=== PATIENT | female | born 1995 | race African-American/Black ===

== ENCOUNTER 2024-12-01 16:43 | Observation (INO) | payer BC, SELFPAY ==
[2024-12-01] VITALS (11 sets, daily range): BP systolic 101–117; BP diastolic 59–84; PULSE 85–105; RESP 14–21; TEMP 36.4–36.6; O2SAT 98–100; BMI 33.4
--- NOTE | ~2024-12-01 | CT_ITS ---
EXAMINATION: CT abdomen pelvis w con DATE: 12/01/2024 20:07 INDICATION: epigastric pain TECHNIQUE: Computed tomography (CT) of the abdomen and pelvis was performed with 100 mL Omnipaque-350 intravenous contrast. Automated exposure control and iterative reconstruction technique were employe d. The dose-length product was 439.38 mGy-cm. COMPARISON: None. FINDINGS: Lower thorax: Unremarkable Liver: Mildly enlarged. Biliary/Gallbladder: Gallbladder is normal. No bile duct dilation. Pancreas: No mass or duct dilation. Spleen: Normal. Adrenals:No mass. Kidneys: No suspicious mass, obstructing stone, or hydronephrosis. There is early concentration of co ntrast in the renal calyces which could obscure small calculi or medullary calcinosis. GI tract: Mild distal esophageal and gastric wall edema. No small or large bowel dilation. The append ix is dilated to 9 mm, with wall hyperemia. Mild surrounding inflammatory fluid that also involves th e right adnexal structures. No definite wall breakdown. Mesentery/Peritoneum: No ascites, mass, or free air. Retroperitoneum: No mass. Pelvis: Pelvic organs are within normal limits. Previously oh cyst on the right. Small-volume pelvic fluid, within physiologic range. Soft Tissues: Small uncomplicated fat-containing umbilical hernia Bones: No acute osseous finding. IMPRESSION: Mild esophagitis/gastritis. Mild hepatomegaly. Acute uncomplicated appendicitis. Reviewed, dictated and finalized at location K.
[2024-12-01 17:57] LABS: Hematocrit 38.6 % (37.0-47.0); Hemoglobin 12.2 g/dL (12.0-15.0); Immature Granulocyte Percent A 0.4 % (0-0.5); Lymphocytes Absolute Auto 0.98 K/mm3 (0.9-3.2); Mean Corpuscular HGB Conc 31.6 g/dl (32-36); Mean Corpuscular Hemoglobin 27.8 pg (26-34); Mean Corpuscular Volume 87.9 fl (80-100); Nucleated Red Blood Cells Absolute Auto 0.000 K/mm3 (0.0-0.012); Nucleated Red Blood Cells Perc 0.0 % (0.0-0.2); Platelet Count Result 279 k/mm3 (150-375); Red Blood Count 4.39 M/mm3 (4.2-5.4); White Blood Count 7.9 K/mm3 (4.5-10.0)
[2024-12-01 17:59] LABS: BEDSIDEPREGUCG Negative (Negative)
[2024-12-01 18:18] LABS: Alanine Aminotransferase 19 U/L (6-35); Albumin Level 4.5 g/dL (3.5-5.1); Alkaline Phosphatase 73 U/L (38-126); Anion Gap 9 mmol/L (4-12); Aspartate Amino Transferase 25 U/L (14-36); Bilirubin,Total 0.3 mg/dL (0.2-1.3); Blood Urea Nitrogen 9 mg/dL (7-17); Calcium 9.2 mg/dL (8.4-10.2); Carbon Dioxide 25 mmol/L (22-30); Chloride 105 mmol/L (98-107); Estimated CRCL calculation 80 ml/min; Estimated Glomerular Filt Rate > 60; Glucose 94 mg/dL (65-110); Lipase 55 U/L (23-300); Potassium 3.9 mmol/L (3.4-5.0); Sodium 139 mmol/L (137-145); Total Protein 8.3 g/dL (6.3-8.2)
[2024-12-01 18:21] LABS: Add Urine Microscopic? YES; Appearance Urine Clear (Clear); Glucose Urine UA Negative (Negative); Leukocyte Esterase Ur Negative LEU/UL (Negative); Nitrate Urine Negative (Negative); Non Pathogenic Casts 0-2; Specific Grav Ur 1.037 (1.001-1.035)
--- OUTSIDE RECORDS SUMMARY | 2024-12-01 18:30 | XMS_ITS | Data Portability ---
[facility] Address [address] [place] [address] Assessment No assessment recorded. Plan of Treatment Reminders Order Date Submit Date Provider Last Modified By Organization Details Last Modified Time Details Appointments None record ed. Lab None record ed. Referral None record ed. Procedures None record ed. Surgeries None record ed. Imaging None record ed. Medication Orders None record ed. Patient TargetsNo targets recorded. Patient Instructions Encounter Date Encounter Id Patient Instructions Last Modified By Organization Details Last Modified Time 02/09/2023 [id number] A healthy lifestyle: care instructions [email or web address] Not available 02/10/2023 11:59:04 Reason for Referral None Reported. Problems No Known Problems Medical Equipment None Reported. Allergies No known drug allergies Medications Not known to be on any medication Vitals Date Recorded Body height Body mass index (BMI) Body weight Oxygen saturation Oxygen saturation in Arterial blood by Pulse oximetry Heart rate Respiratory rate Body temperature Systolic And Diastolic Provider Name and Address Organization Details Last Updated DateTime 3 154.94 cm 32.4 kg/m2 46218.7 5 g 100 % 100 % 86 /min 18 /min 98 [degF] 109/74 mm[Hg] Arianna Hess MA [facility] 3 17:37:48 Social History Question Answer Notes LastModified by Organizat ion Details LastModified Time Tobacco Smoking Status Never Smoker EVA Arredondo, [facility] 02/09/2023 17:39:18 Do You Have An Advance Directive? Yes Information n ot available 02/09/2023 Are You Blind Or Do You Have Difficulty Seeing? No Information n ot available 02/09/2023 What Is Your Level Of Caffeine Consumption? Occasional Information not available 02/09/2023 In The 14 Days Before Symptom Onset, Have You Had Close Contact With A Laboratory-confirm ed COVID-19 While That Case Was Ill? No Information n ot available 02/09/2023 In The 14 Days Before Symptom Onset, Have You Had Close Contact With A Person Who Is Under Investigation For COVID-19 While That Person Was Ill? No Information not available 02/09/2023 Have You Been To An Area Known To Be High Risk For COVID-19? No Information not available 02/09/2023 Are You Deaf Or Do You Have Serious Difficulty Hearing? No Information not available 02/09/2023 What Type Of Diet Are You Following? REGULAR Information n ot available 02/09/2023 Are There Any Guns Present In Your Home? No Information not available 02/09/2023 What Was The Date Of Your Most Recent Tobacco Screening? 02/09/2023 Information not available 02/09/2023 Do You Use Protection During Sex? Always Information not available 02/09/2023 What Is Your Relationship Status? Single Information not available 02/09/2023 Do You Use Your Seat Belt Or Car Seat Routinely? Yes Information not available 02/09/2023 Are You Sexually Active? Yes Information not available 02/09/2023 Do You Have Smoke And Carbon Monoxide Detectors In Your Home? Yes Information not available 02/09/2023 Are You Passively Exposed To Smoke? No Information no t available 02/09/2023 Do You Use Sunscreen Routinely? No Information not available 02/09/2023 Has Tobacco Cessation Counseling Been Provided? No Information not available 02/09/2023 Sex: Female Functional Status Question Answer Note LastModified by Organizat ion Details LastModified Time Do you use any illicit or recreational drugs? No Information not available 02/09/2023 Do you or have you ever used any other forms of tobacco or nicotine? No Information not available 02/09/2023 What is your level of alcohol consumption? None Information not available 02/09/2023 Are you currently employed? No Information not available 02/09/2023 Are you able to care for yourself? Yes Information not available 02/09/2023 What is your exercise level? None Information not available 02/09/2023 Mental Status Question Answer Note LastModified by Organization D etails LastModified Time Do you feel stressed (tense, restless, nervous, or anxious, or unable to sleep at night)? [id number] Information not available 02/09/2023 Family History Nothing Reported. Medical History Condition Response Coronary Artery Disease N Other N High Blood Pressure N Atrial Fibrillation N Kidney or Bladder Problems N Thyroid Problems N Blood Clots N COPD N Depression N GI Problems N Skin Problems N Eating Disorder N Anemia N Heart Attack ([place]) N Anxiety Disorder N Diabetes N Muscle, Joint, or Bone Problems N Seizures/Epilepsy N Acid Reflux (GERD) N Cancer N Stroke N Asthma N Allergies N ADHD N Substance Abuse N High Cholesterol N Hepatitis N Liver Disease N Schizophrenia N Headaches N Heart Failure N Osteoporosis N Gynecological History Statement/Question Response Flow Moderate Date of LMP 01/28/2023 Frequency of Cycle (Q days) 28 On BCP's at Conception? N Menses Monthly Y Duration of Flow (days) 4 Age at Menarche 12 Current Control Method Condoms LMP Definite Obstetrics History GPAL:G 0 P 0 0 0 0 Past Encounters Encounter ID Performer Location Encounter Start Date Encounter Closed Date Diagnosis/Indication Diagnosis SNOMED-CT Code Diagnosis ICD10 Code Diagnosis Note [id number] Carmen Crouch MD [address] [address] 02/09/2023 16:51:41 02/12/2023 14:26:37 Obesity 871712903 E66.9 History an d physical examination, pre-employment 127002296 Z02.1 negative assessment . no restrictio ns indicated. denies asthma, heart disease and sickle cell. Health Concerns Section Related Observation LastModified by Organization Detai ls LastModified Time None Recorded Concern Status LastModified by Organization Details LastModified Time None Recorded Advance Directives Directive Y: Payers Insurance Date Sequence Insurance Name Policy Number Policy Servin Covered Member ID Servin Member ID Guarantor Name 02/12/2023 1 [employer] (POS II) [id number] Jody Garces [id number] Jodyalycia Garces 02/09/2023 1 *SELF PAY* Br debra Dez Notes Date Note Type Note Provider Name and Address Organization Details Recorded Time 02/09/2023 text/html Pt presents to clinic requesting an employment physical. She denies nausea, vomiting, fever, chills, rash, cough, CP, SOB, HARMON, diarrhea, constipation and dysuria. MAGDIEL Blackman NP Attn: Accounting[address] [place], [address], [facility] 02/09/2023 17:43:59 OBGyn Episode No OBEpisode recorded.
--- OUTSIDE RECORDS SUMMARY | 2024-12-01 18:30 | XMS_ITS | Encounter Summary ---
Author Organization [facility] Address [address] [place] [address] Care Team Providers Care Personal Lines Sales Executive Name Role Phone Unknown, Provider Primary Care Provider [facility] Primary Care Provider Unavailable Encounter Details Date Type Department Care Team (Late st Contact Info) Description 02/06/2024 Telephone [facility] - PREPAROLE COUNSELING AIDE [address] [place] [address] Group, u Sponsorship Manager [address] [facility] [address] [place] [address] Social History Tobacco Use Types Packs/Day Years Used Date Smoking Tobacco: Never Smokeless Tobacco: Never Alcohol Use Standard Drinks/Week Comments No 0 (1 standard drink = 0.6 oz pur e alcohol) PHQ-2 Answer Date Recorded Patient Health Questionnaire-2 Score 0 09/11/2023 Comments No Sex and Gender Information Value Date Recorded Sex Assigned at Not on file 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 Answer Date of Assessment Author No 12/13/2016 8:32 PM Alanis Boyle RN * Is person blind or have serious difficulty seeing? Answer Date of Assessment Author No 12/13/2016 8:32 PM Alanis Boyle RN * Does person have serious difficulty walking/climbing stairs? Answer Date of Assessment Author No 12/13/2016 8:32 PM CDT Alanis Dey RN * Does person have difficulty dressing/bathing? Answer Date of Assessment Author No 12/13/2016 8:32 PM CDT Alanis Dey RN * Does person have difficulty doing errands alone? Answer Date of Assessment Author No 12/13/2016 8:32 PM CDT Alanis Dey, RN documented as of this encounter Mental Status * Does person have difficulty concentrating/remembering/making decisions? Answer Entry Date Author No 12/13/2016 8:32 PM CDT Alanis Dey RN documented in this encounter Miscellaneous Notes * Telephone Encounter - Jeimy Dennis - 02/06/2024 8:55 AM CDT Outbound call made to patient Left message for pt to call and reate an appt with urogyn .. The was disconnected did leave # for her to call and create an appt documented in this encounter Plan of Treatment Upcoming Encounters Date Type Department Care Team (Late st Contact Info) Description 09/30/2025 9:10 AM CDT Office Visit [facility] - PREPAROLE COUNSELING AIDE [address] [place] [id number] James Franco MD [address] [place] [address] documented as of this encounter Visit Diagnoses Not on filedocumented in this encounter Care Teams Personal Lines Sales Executive Relationship Specialty Start Date End Date Unknown, Provider PCP - General 09/04/17 08/18/24 [facility], [facility] PCP - General 08/19/24 documented as of this encounter
--- OUTSIDE RECORDS SUMMARY | 2024-12-01 18:30 | XMS_ITS | Data Portability ---
Author Organization [facility], Main Office Address [address] [place] [address] [address] [place] [address] Assessment No assessment recorded. Plan of Treatment [...] Modified By Organization Details Last Modified Time 04/27/2021 [id number] She will follow up with me only as needed and if she wants to start treatment. On today's visit I spent a total of 30 minutes [id number] with her and documenting. [email or web address] Not available 05/31/2021 20:43:09 Reason for Referral None Reported. Problems Name Problem SNOMED Code Status Onset Date Resolution Date Notes Provider Name and Address Organization Details Recorded Time Pile easily reducible 293377739 Active 2020: No tx -no want Aruna Hernandez MD [address] [place] [address],[address], [address] [place] [address] [facility] 2 20:42:11 External hemorrhoids 75351190 Active 2020 Aruna Hernandez MD [address] [place] [address],[address], [address] [place] [address] [facility] 2 20:42:20 Constipation 49906168 Active 2020 Aruna Hernandez MD [address] [place] [address],[address] [place], [address], [facility] [place] 2 20:41:47 Problem Notes None recorded. Procedures Surgical History Date Name Laterality Status Provider Name and Address Organization Details Recorded Time 1 Anoscopy completed Aruna Hernandez MD [address], [place], [address], [facility] [place] 05/31/2021 20:37:36 Date of Last Pap Smear completed Francoise Arreola [facility] 04/27/2021 11:08:32 Imaging Results None recorded. Procedure Notes None recorded. Medical Equipment None Reported. Allergies No known drug allergies Medications Not known to be on any medication Vitals None Recorded Social History Question Answer Notes LastModified by Organizat ion Details LastModified Time Tobacco Smoking Status Never Smoker Francoise Arreola [facility] 04/27/2021 11:08:04 Alcohol Use No [email or web address] Information n ot available 04/27/2021 Caffeine Use No [email or web address] Information not available 04/27/2021 Illicit Drug Use No [email or web address] Information not available 04/27/2021 What Was The Date Of Your Most Recent Tobacco Screening? 04/27/2021 [email or web address] Information not available 04/27/2021 Sex: Unknown Functional Status Question Answer Note LastModified by Organization D etails LastModified Time Do you or have you ever used any other forms of tobacco or nicotine? No [email or web address] Information not available 04/27/2021 Mental Status None recorded. Family History Relationship Description Onset Age of this Age Resolved Age Notes LastModified by Organization Details LastModified Time Father No current problems or disability Not available 04/27 11:07:52 Mother No current problems or disability [email or web address] Not available 04/27 11:07:52 Medical History Condition Response Coronary Artery Disease N Other N Atrial Fibrillation N Kidney Stones N Hyperthyroidism N Hernia N COPD N Glaucoma N Hypothyroidism N Depression N Accidental Bowel Leakage N Headaches/Migraines N Deep Vein Thrombosis N Anxiety Disorder N Cardiac Dysrhythmia N MRSA/VRE Exposure N Genital Herpes N Diverticulosis N Cancer N Stroke N Head Trauma N Genital Warts N Crohn's Disease N Liver Disease/Hepatitis N HIV/AIDS N High Cholesterol N Irritable Bowel Syndrome N Autoimmune Disease N Kidney Disease N Anemia N Arthritis/Gout N Celiac Disease N Anal/Rectal Trauma/Injury N Diabetes N Cataracts N Bleeding Disorder N Seizures/Epilepsy N Congestive Heart Failure (CHF) N Diverticulitis N Asthma N Heart Attack N Reflux/GERD N Ulcerative Colitis N Sleep Apnea N Aneurysm N Mitral Valve Prolapse N Heart Disease N Pulmonary Embolism N Hypertension N Colon/Rectal Polyps N Gynecological History Statement/Question Response Number of Pregnancies? 2 Tear or Laceration During Delivery? N Could You Be or Are You Currently Pregna nt? N Number of Vaginal Deliveries? 2 Accidental Bowel Leakage Post Delivery? N Episiotomy During Delivery? N Date of Last Pap Smear 08/12/2020 Obstetrics History GPAL:G 0 P 0 0 0 0 Past Encounters Encounter ID Performer Location Encounter Start Date Encounter Closed Date Diagnosis/Indication Diagnosis SNOMED-CT Code Diagnosis ICD10 Code Diagnosis Note [id number] Aruna Hernandez MD Main Office [address] [facility] [address] [place] [address] 04/27/2021 10:56:58 04/27/2021 11:58:53 Pile easily reducible 470244642 K64.1 Stage 2 internal hemorrhoid s: I discussed hemorrhoid s in general with her as well as the treatment options. She now understand s that any non-surgic al procedure (infrared coagulatio n or banding) would be done on her internal hemorrhoid s. I did give her full informed consent for IRC including risks, benefits and alternativ es. She wanted to think about her options before starting treatment, especially when I told her the skin tag would not go away. External hemorrhoids 239 [address] K64.4 She now understand s that the only way to directly treat external hemorrhoid s would be with a surgical excision. She declined a surgical consult. I advised she needs to consistent ly use the moist baby wipes (and they work just as well as the hemorrhoid wipes). She needs to continue using gentle soap. I advised she can use Jose' s Butt Paste with Aloe with or without coconut oil for any skin irritation . Constipation 86410665 K5 9.00 She of course needs to consistent ly eat a high fiber diet and drink plenty of water. I advised that she start BOTH Bene Fiber and Miralax at very low dose (1/4 tsp of each daily) and slowly increase. Once she figures out what dose works to maintain daily and soft (Armstrong Scale type 4) BM's, she should take it daily and forever. Health Concerns Section Related Observation LastModified by Organization Detai ls LastModified Time None Recorded Concern Status LastModified by Organization Details LastModified Time None Recorded Advance Directives Directive None Recorded Payers Insurance Date Sequence Insurance Name Policy Number Policy Servin Covered Member ID Servin Member ID Guarantor Name 05/31/2021 1 [employer] (POS) [id number] Jody Garces [id number] Jody Garces Notes Date Note Type Note Provider Name and Address Organization Details Recorded Time 04/27/2021 text/html This is a pleasa nt 25 year old woman who has had symptoms from her hemorrhoids on and off since 2017 with a and delivery. She has had an external tag that has always just been there but did not bother her much. She has had a lot more irritation/burning and pain over the last year. She presents today for an evaluation and to discuss her treatment options.Bleeding: She occasionally sees a small amount of BRB on the wipe with a BM. She has never had heavy bleeding or leakage of blood in between BM's. Pain: She had more pain about 1 year ago. Currently she gets some burning if she applies medication to the area. Itching: She gets some external itching and burning. She does use gentle soap (Dove) with cleansing. Discharge: It is always hard to get clean after BM's because of swelling and irritation. She consistently uses medicated wipes after BM's. She does not have difficulty staying clean - she does not have to re-wipe. She has no drainage. Prolapse: Not that she feels or has to manually reduce. External swelling: She always has some external swelling and skin tagging. This is worse after BM's. Discomfort: As above. She denies internal symptoms of pressure, a sense of being blocked when trying to have a BM or a sense of incomplete emptying after BM's. Previous Hemorrhoid Treatment: She has used the hemorrhoid wipes and cream. She has never had a prescription for or procedure on her hemorrhoids. Previous Lower GI Endoscopy: She has never had a colonoscopy. Bowel Habits: She has had long standing daily BM's that are usually soft (Armstrong Scale type 4) but can be firm (type 1) depending on her diet. She admits she does not always eat a high fiber diet or drink enough water. She does not take a fiber supplement, stool softener or stimulant laxative. Aruna Hernandez MD [address], [place], [address], [facility] 05/31/2021 20:43:35 OBGyn Episode No OBEpisode recorded.
--- OUTSIDE RECORDS SUMMARY | 2024-12-01 18:30 | XMS_ITS | Clinical Summary ---
Author Organization [facility] [employer] Address [address] [place] [address] Care Team Providers Care Crm Coordinator Name Role Phone [facility], [facility] Primary Care Provider Unavailable Source Comments [facility],non-owned Affiliates and Associated Physician Practices is amultiple site organization consisting of ambulatory clinics and hospital sitesin [place], [place], [place] and [place]. This disclosure is being madepursuant to the Care Everywhere program and may not contain all information available regarding this patient. Last updated 18.[facility] [employer] Allergies No known active allergies Medications * Be aware that medications may not be up to date on this document. Alwaysverify current medications with the patient. nitrofurantoin monohyd macro crystals (Macrobid) 100 MG capsuleIndicati ons:Recurrent UTI Take 1 (one) capsule by mouth as directed 50 capsule 4 02/25/2024 Active Active Problems Problem Noted Date Diagnosed Date Constipation 11/03/2011 Resolved Problems Problem Noted Date Diagnosed Date Resolved Date Spontaneous rupture of membranes 11/03/2011 08/30/2022 Overview (11/03/2011): 0715 on 11/03/11 Supervision of normal first 11/02/2011 09/12/2023 Overview (11/03/2011): Dating by documented 18w US in [facility] Prenatals: O+/I/-/-, NR Quad Screen normal GCT 67 GBS neg WCC (well child check) 03/03/201011/02 Generalized headaches 03/03/20102011 High risk sexual behavior 01/06/2010 Overview (01/06/2010): Pt admits to being sexually active. Uses condoms. Has not been tested for STDs. No current symptoms. LMP was 5 days ago, normal. 1. Urine GC/Chlamydia today. ONLY CALL WILMA with results at [phone]. 2. If above labs positive, will get HIV/RPR. Not done at this visit as patient does not want mom to know she is sexually active, so she was unwilling to go to the lab for blood draw, also HIV requires parental consent. 3. Pt to follow-up for WCC in next 2-3 weeks. Vaginal candidiasis 01/06/2010 11/03/19 12 Overview (03/03/2010): Lotrimin; clean, cotton underwear Vaginal delivery 08/30/2022 Encounters Date Type Department Care Team Description 09/24/2024 10:30 AM CDT Office Visit [facility] - [facility]PA[facility] CONSULTANT [address] [address] James Franco MD Well woman exam with routine gynecological exam (Primary Dx); Screening for STDs (sexually transmitted diseases); Recurrent UTI 09/24/2024 Travel from Last 3 Months Immunizations Immunization Administration Dates Next Due DTaP VACCINE IM (6wk-6yrs) 01/05/2000,,05/18/1995, 5,1994 HEP A PEDS 2 DOSE 03/03/2010,12/19/2000 HEP B VACCINE, PED/ADOL 05/18/1995,1994, HIB BOOSTER 11/23/1995, 6,01/22/1995, 5 Human Papilloma Virus Vaccine 08/11/2010, 010,04/19/2006 MENINGOCOCCAL ACWY (MCV4P) VAC IM 03/03/2010 MMR 01/05/2000,11/23/1995 POLIO IPV 01/05/2000, 6,01/22/1995, 5 PPD 12/23/2000 TDAP (7yrs+) 11/10/2016, 7,11/04/2011, 0 VARICELLA 03/03/2010,11/24/1997 Family History Medical History Relation Name Comments Hypertension Mother Renal Disease Mother Relation Name Status Comments Mother Alive kidney transpla nt 2013 Social History Tobacco Use Types Packs/Day Years Used Date Smoking Tobacco: Never Smokeless Tobacco: Never Tobacco Cessation:Counseling Given: Not Answered Alcohol Use Standard Drinks/Week Comments No 0 (1 standard drink = 0.6 oz pur e alcohol) PHQ-2 Answer Date Recorded Patient Health Questionnaire-2 Score 0 09/11/2023 Comments No Sex and Gender Information Value Date Recorded Sex Assigned at Not on file 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[employer] Gender Identity Not on file Sexual Orientation Not on file Last Filed Vital Signs Vital Sign Reading Time Taken Comments Blood Pressure 122/70 09/24/2024 10:09 AM CDT Pulse 78 08/19/2024 3:12 AM CDT Temperature 36 C (96.8 F) 08/19/2024 3:12 AM CDT Respiratory Rate 18 08/19/2024 3:12 AM CDT Oxygen Saturation 100% 08/19/2024 3:12 AM CDT Inhaled Oxygen Concentration - - Weight 78.9 kg (174 lb) 09/24/2024 10:09 AM CDT Height 154.9 cm (5' 1) 09/24/2024 10:09 AM CDT Body Mass Index 32.88 09/24/2024 10:09 AM CDT Plan of Treatment Upcoming Encounters Date Type Department Care Team (Late st Contact Info) Description 09/30/2025 9:10 AM CDT Office Visit [facility] - [facility] CONSULTANT [address] [place] [address] James Franco MD [address] [place] [address] Health Maintenance Due Date Last Done Comments COVID-19 VACCINE ( season) 2024 06/13/2021, 09/03/2020, 08/13/2020 DEPRESSION SCREENING 05/14/2024 09/12/2023 INFLUENZA VACCINE (#1) 2025 DTAP/TDAP/TD VACCINES (10 - Td or Tdap) 11/10/2026 11/10/2016, 10/04/2016, 11/04/2011, Additional history exists PAP with HPV 09/11/2028 09/12/2023 ZOSTER VACCINE (1 of 2) 2044 HEPATITIS B VACCINE Completed 05/18/1995, 1994, 1994 HIB VACCINE Completed 11/23/1995, 09/1995, 01/22/1995, Additional history exists MENINGOCOCCAL GROUPS A/C/Y/W VACCINE Aged Out 03/03/2010 No longer eligible based on patient's age to complete this topic HPV VACCINE Completed 08/11/2010, 02/12, 04/19/2006 HEPATITIS C SCREENING Completed 09/24/2024 , 09/12/2023, 05/28/2023, Additional history exists HIV SCREENING Completed 09/24/2024, 05/2023, 05/28/2023, Additional history exists MENINGOCOCCAL (Group B) VACCINE SHARED DECISION-MAKING Aged Out No longer eligible based on patient's age to complete this topic PNEUMOCOCCAL VACCINE Aged Out No long er eligible based on patient's age to complete this topic Procedures Procedure Name Priority Date/Time Associated Diagnosis Comments HEPATITIS B SURFACE ANTIGEN W RFLX CONFIRMATION Routine 09/24/2024 10:30 AM CDT Screening for STDs (sexually transmitted diseases) TREPONEMA PALLIDUM POS REFLX RPR Routine 09/24/2024 10:30 AM CDT Screening for STDs (sexually transmitted diseases) HIV-1 HIV-2 ANTIBODY + HIV P24 AG PANEL Routine 09/24/2024 10:30 AM CDT Screening for STDs (sexually transmitted diseases) HEPATITIS C AB W/RFLX TO HCV RNA QN PCR Routine 09/24/2024 10:30 AM CDT Screening for STDs (sexually transmitted diseases) CHLAMYDIA + GC + TRICH DNA AMPL Routine 09/24/2024 10:21 AM CDT Screening for STDs (sexually transmitted diseases) HPV DETECTION HIGH RISK NOLAN Routine 09/12/2023 8:10 AM CDT Well woman exam with routine gynecological exam from Last 3 Months or Most Recently Relevant to Health Maintenance Results * HEPATITIS C AB W/RFLX TO HCV RNA QN PCR (09/24/2024 10:30 AM CDT) Hepatitis C Antibody NON-REACTI VE NON-REACT LINDSAY [facility] Comment: HCV antibody was non-reactive. There is no laboratory evidence of HCV infection. In most cases, no further action is required. However, if recent HCV exposure is suspected, a test for HCV RNA (test code 52135) is suggested. For additional information please refer to http://education.[employer].com/faq/HBD35d1 (This link is being provided for informational/ educational purposes only.) Test Performed at: [facility] [address] [place] [address] NICOLE VALDEZ MD Blood BLOOD SPECIMEN / Unknown 09/24/2024 10:30 AM CDT 09/24/2024 10:31 AM CDT James Franco MD LAB - CHEMISTRY ORDERABLES Jessica l Result [facility] [id number] [place] [address] * HIV-1 HIV-2 ANTIBODY + HIV P24 AG PANEL (09/24/2024 10:30 AM CDT) HIV Screen 4th Generation w Reflex NON-REACT LINDSAY NON-REACT LINDSAY [facility] Comment: HIV-1 antigen and HIV-1/HIV-2 antibodies were not detected. There is no laboratory evidence of HIV infection. PLEASE NOTE: This information has been disclosed to you from records whose confidentiality may be protected by state law. If your state requires such protection, then the state law prohibits you from making any further disclosure of the information without the specific written consent of the person to whom it pertains, or as otherwise permitted by law. A general authorization for the release of medical or other information is NOT sufficient for this purpose. For additional information please refer to http://education.[employer].com/faq/UAR276 (This link is being provided for informational/ educational purposes only.) The performance of this assay has not been clinically validated in patients less than 2 years old. Test Performed at: [facility] [address] [place] [address] NICOLE VALDEZ MD Blood BLOOD SPECIMEN / Unknown 09/24/2024 10:30 AM CDT 09/24/2024 10:31 AM CDT James Franco MD LAB - CHEMISTRY ORDERABLES Jessica l Result Performing Organization Address [facility] de Phone Number [facility] [address] [place] [address] * TREPONEMA PALLIDUM POS REFLX RPR (09/24/2024 10:30 AM CDT) Pathologist [facility] Treponema pallidum Antibody EIA NEGATIVE NEGATIVE [facility] Comment: No antibodies to T. pallidum (the agent causing syphilis) were detected in the specimen. This result, however, does not exclude very recent T. pallidum infection; testing of a second specimen, collected 2-4 weeks after this specimen, is recommended if the index of suspicion for recent infection is high. Test Performed at: [facility] [address] [address] DUY GREGORY Blood BLOOD SPECIMEN / Unknown 09/24/2024 10:30 AM CDT 09/24/2024 10:31 AM CDT James Franco MD LAB - SEROLOGY ORDERABLES Final Result Performing Organization Address [facility] Co de Phone Number [facility] [id number] [place] [address] * HEPATITIS B SURFACE ANTIGEN W RFLX CONFIRMATION (09/24/2024 10:30 AM CDT) [facility] Hepatitis B Virus Surface Antigen NON-REACTI VE NON-REACT LINDSAY [facility] Comment: For additional information, please refer to http://[employer].com/faq/SQW070 (This link is being provided for informational/ educational purposes only.) Test Performed at: [facility] [address] [place] [address] NICOLE VALDEZ MD Blood BLOOD SPECIMEN / Unknown 09/24/2024 10:30 AM CDT 09/24/2024 10:31 AM CDT us James Franco MD LAB - CHEMISTRY ORDERABLES Jessica l Result Performing Organization Address [facility] de Phone Number [facility] [address] [place] [address] * CHLAMYDIA + GC + TRICH DNA AMPL (09/24/2024 10:21 AM CDT) Pathologist [facility] Chlamydia trachomatis RNA NOT DETECTED NOT DETECTED [facility] GC RNA NOT DETECTED NOT DETECTED [facility] Please Note [facility] Comment: The analytical performance characteristics of this assay, when used to test SurePath(TM) specimens have been determined by [employer]. The modifications have not been cleared or approved by the FDA. This assay has been validated pursuant to the CLIA regulations and is used for clinical purposes. For additional information, please refer to https://[employer]/faq/WKT730 (This link is being provided for information/ educational purposes only.) Trichomonas vaginalis RNA Qualitative NOT DETECTED NOT DETECTED [facility] Comment: For additional information, please refer to [email or web address]/ faq/Trichomonastma (This link is being provided for informational/ educational purposes only.) Test Performed at: [facility] [address] [place] [address] NICOLE VALDEZ MD Microbiology ENTIRE ENDOCERVIX / Unknown 09/24/2024 10:21 AM CDT 09/25/2024 3:13 AM CDT us James Franco MD LAB - MICROBIOLOGY ORDERABLES F inal Result Performing Organization Address [facility] Co de Phone Number [facility] [address] [place] [address] * HPV DETECTION HIGH RISK NOLAN (09/12/2023 8:10 AM CDT) High Risk Human Papilloma Result Not detected Not detected 09/14/2023 4:21 AM CDT [facility] High Risk Human Papilloma Interp 09/14/2023 4:21 AM CDT [facility] Comment:High Risk Human Augustin lloma Virus was Not Detected. Pathology/Cytolo gy MISCELLANEOUS SAMPLES / Unknown 09/12/2023 8:10 AM CDT 09/13/2023 11:52 AM CDT Narrative [facility] - 09/14/2023 4:21 AM CDT Nucleic acid isolated from the specimen was analyzed with a nucleic acid amplification test (FDA approved Gen-Probe HPV Assay) to detect high risk human papilloma virus (Types: 16, 18, 31, 33, 35, 39, 45, 51, 52, 56, 58, 59, 66, and 68). The reference range is Not Detected. Comment: These test results should not be used as the sole basis for clinical assessment and treatment of patients. These results should always be correlated with other available data (cytology, histology, and clinical information). James Franco MD LAB - MICROBIOLOGY ORDERABLES F inal Result Performing Organization Address [facility] Co de Phone Number [facility] [address] [place], [place] [address] [phone] from Last 3 Months or Most Recently Relevant to Health Maintenance Insurance [facility] Advance Directives * Full Code (Latest Code Status on File) Date Activated Date Inactivated Comments 12/13/2016 8:23 PM 12/16/2016 1:53 PM * FULL RESUSCITATION Date Activated Date Inactivated Comments 11/03/2011 8:24 AM 11/06/2011 12:17 AM * FULL RESUSCITATION Date Activated Date Inactivated Comments 11/02/2011 9:13 PM 11/03/2011 8:24 AM Care Teams Crm Coordinator Relationship Specialty Start Date End Date [facility], [facility] PCP - General 08/19/24
--- NOTE | 2024-12-01 18:52 | ED_ITS ---
HPI - Abdominal Pain General Chief Complaint: Abdominal Pain <BRIANNA Chinchilla Last Filed: 12/02/24 03:15> Stated Complaint: abdominal pain, nauseated <Marlenijaniya Martini BRIANNA Alvarez Last Filed: 12/02/24 03:15> Time Seen by Provider: 12/01/24 17:33 <BRIANNA Chinchilla Last Filed: 12/02/24 03:15> Source: patient <Marleni Martini BRIANNA Alvarez Last Filed: 12/02/24 03:15> Mode of arrival: ambulatory <BRIANNA Chinchilla Last Filed: 12/02/24 03:15> Limitations: no limitations <Marlenijaniya Martini BRIANNA Alvarez Last Filed: 12/02/24 03:15> History of Present Illness HPI narrative: This is a 29-year-old female that presents emergency department for mid abdominal pain. Reports pain is burning in nature, associated with nausea. She did have an episode of diarrhea today. Denies fevers, vomiting, dysuria. <BRIANNA Chinchilla Last Filed: 12/02/24 03:15> Related Data Allergies/Adverse Reactions: Allergies Allergy/AdvReac Type Severity Reaction Status Date / Time No Known Allergies Allergy Verified 12/01/24 22:05 <BRIANNA Chinchilla Last Filed: 12/02/24 03:15> Review of Systems 2 Review of Systems: All systems reviewed & are unremarkable except as noted in HPI and below <Marleni Alvarez PA-C - Last Filed: 12/02/24 03:15> [facility] Past Medical History Medical History: Medical History No active medical problems <BRIANNA Chinchilla Last Filed: 12/02/24 03:15> Surgical History Surgical History: Surgical History No pertinent past surgical history <BRIANNA Chinchilla Last Filed: 12/02/24 03:15> Family History Family History: Family History Mother Hypertension Diabetes mellitus Kidney transplant recipient <Marleni Alvarez PA-C - Last Filed: 12/02/24 03:15> Social History Social History: Social History Smoking status: Never smoker Substance use type: does not use Do You Feel Safe in your Home?: Yes Lack of Transportation: No Lack of Food: Never True Current Housing: I Have Housing Concerned About Future Housing: No Difficulty Paying Gas/Electric Bills: No Difficulty Paying for Meds: No Currently Unemployed: No Education: High School Diploma/GED Difficulty w/ Childcare or Family Care: No Spiritual care concerns: No <Marleni Alvarez PA-C - Last Filed: 12/02/24 03:15> Exam 2 Narrative: GENERAL: Well-appearing, well-nourished, and in no acute distress. HEAD: Normocephalic, atraumatic. EYES: EOMI. CHEST: Clear to auscultation. No respiratory distress. No wheezes rales or rhonchi HEART: Regular rate and rhythm. No murmur heard. Normal peripheral pulses. ABDOMEN: Soft, nondistended, normal active bowel sounds. Mild tenderness to palpation in the epigastrium, without guarding. Tender to palpation in the right lower quadrant EXTREMITIES: Normal range of motion. No edema. SKIN: Warm, dry, no rash. NEURO: No focal deficits. Alert and oriented x3. PSYCH: Normal mood and affect <Marleni Alvarez PA-C - Last Filed: 12/02/24 03:15> Course Course Emergency Course: Patient updated on her workup and need for admission <AISHWARYA Chinchilla - Last Filed: 12/02/24 03:15> BRIM STRETCHING MACHINE OPERATOR/PA Physician Supervision For this patient encounter, I reviewed the BRIM STRETCHING MACHINE OPERATOR or PA documentation, treatment plan, and medical decision making; and I had [id number] time with this patient. <Mio Minaya MD - Last Filed: 12/02/24 19:48> Consultations Consultation #1: Spoke with Dr. Sweet about patient and workup. Will continue IV antibiotics, NPO, will admit for likely surgery tomorrow <Marleni Alvarez PA-C - Last Filed: 12/02/24 03:15> Date: 12/01/24 <Marleni Alvarez PA-C - Last Filed: 12/02/24 03:15> Vital Signs Vital signs: Vital Signs Temperature 97.9 F 12/01/24 16:58 Pulse Rate 105 H 12/01/24 16:58 Respiratory Rate 16 12/01/24 16:58 Blood Pressure 105/59 L 12/01/24 16:58 Pulse Oximetry 100 12/01/24 16:58 Oxygen Delivery Room Air 12/01/24 16:58 Temperature 98.6 F 12/02/24 17:56 Pulse Rate 94 12/02/24 17:56 Respiratory Rate 18 12/02/24 17:56 Blood Pressure 102/57 L 12/02/24 17:56 Pulse Oximetry 100 12/02/24 17:56 Oxygen Delivery Room Air 12/02/24 16:00 Oxygen Flow Rate 8 12/02/24 15:03 <Marleni Alvarez PA-C - Last Filed: 12/02/24 03:15> Vital Signs Temperature 97.9 F 12/01/24 16:58 Pulse Rate 105 H 12/01/24 16:58 Respiratory Rate 16 12/01/24 16:58 Blood Pressure 105/59 L 12/01/24 16:58 Pulse Oximetry 100 12/01/24 16:58 Oxygen Delivery Room Air 12/01/24 16:58 Temperature 98.6 F 12/02/24 17:56 Pulse Rate 94 12/02/24 17:56 Respiratory Rate 18 12/02/24 17:56 Blood Pressure 102/57 L 12/02/24 17:56 Pulse Oximetry 100 12/02/24 17:56 Oxygen Delivery Room Air 12/02/24 16:00 Oxygen Flow Rate 8 12/02/24 15:03 <Mio Minaya MD - Last Filed: 12/02/24 19:48> MDM - Abdominal Pain MDM Narrative Medical decision making narrative: Patient presents the emergency department for mid abdominal pain. She is afebrile and nontoxic appearing. Cbc without leukocytosis. Metabolic panel without concerning findings. Lipase is not elevated. Urine without evidence of infection. CT abdomen pelvis shows mild esophagitis/gastritis. Acute uncomplicated appendicitis. Spoke with Dr. Sweet about patient and workup. Will continue IV antibiotics, NPO, will admit for likely surgery tomorrow <Marleni Alvarez PA-C - Last Filed: 12/02/24 03:15> Differential Diagnosis Differential diagnosis: Likely acute appendicitis and other (Gastritis, esophagitis, GERD, biliary colic) <Marleni Alvarez PA-C - Last Filed: 12/02/24 03:15> Lab Data Attestation: I reviewed the patient's lab results. <Marleni Alvarez PA-C - Last Filed: 12/02/24 03:15> Result diagrams: 12/01/24 17:45 12/01/24 17:45 <Marleni Alvarez PA-C - Last Filed: 12/02/24 03:15> Labs: Lab Results 12/01/24 12/01/24 12/01/24 Range/Units 17:45 17:55 17:59 WBC 7.9 (4.5-10.0) K/mm3 RBC 4.39 (4.2-5.4) M/mm3 Hgb 12.2 (12.0-15.0) g/dL Hct 38.6 (37.0-47.0) % MCV 87.9 (80-100) fl MCH 27.8 (26-34) pg MCHC 31.6 L (32-36) g/dl RDW 13.3 (11.5-14.5) % Plt Count 279 (150-375) k/mm3 MPV 10.0 (7.4-10.4) fl Immature Gran % (Auto) 0.4 (0-0.5) % Neut % (Auto) 78.2 H (45.5-73.1) % Lymph % (Auto) 12.4 L (18.3-44.2) % [place] % (Auto) 7.8 (2.6-8.5) % Eos % (Auto) 0.8 (0-4.4) % Baso % (Auto) 0.4 (0.2-1.2) % Lymph # (Auto) 0.98 (0.9-3.2) K/mm3 [place] # (Auto) 0.6 (0.1-0.6) K/mm3 Eos # (Auto) 0.1 (0-0.3) K/mm3 Baso # (Auto) 0.0 (0.0-0.1) K/mm3 Abs Immat Gran (auto) 0.03 (0.00-0.031) K/mm3 Absolute Neuts (auto) 6.2 (1.3-6.7) K/mm3 Absolute Nucleated RBC 0.000 (0.0-0.012) K/mm3 Nucleated RBC % 0.0 (0.0-0.2) % Sodium 139 (137-145) mmol/L Potassium 3.9 (3.4-5.0) mmol/L Chloride 105 (98-107) mmol/L Carbon Dioxide 25 (22-30) mmol/L Anion Gap 9 (4-12) mmol/L BUN 9 (7-17) mg/dL Creatinine 0.85 (0.7-1.0) mg/dL Estim Creat Clear Calc 80 ml/min Estimated GFR > 60 (59 - ) Glucose 94 (65-110) mg/dL Calcium 9.2 (8.4-10.2) mg/dL Total Bilirubin 0.3 (0.2-1.3) mg/dL AST 25 (14-36) U/L ALT 19 (6-35) U/L Alkaline Phosphatase 73 (38-126) U/L Total Protein 8.3 H (6.3-8.2) g/dL Albumin 4.5 (3.5-5.1) g/dL Lipase 55 (23-300) U/L Urine Color Yellow (Yellow) Urine Appearance Clear (Clear) Urine pH 6.5 (5.0-9.0) Ur Specific [place] 1.037 H (1.001-1.035) Urine Protein Trace (Negative) mg/dL Urine Glucose (UA) Negative (Negative) mg/dL Urine Ketones Trace H (Negative) mg/dL Ur Blood (Man) Negative (Negative) Urine Nitrate Negative (Negative) Urine Bilirubin Negative (Negative) Urine Urobilinogen 1.0 (<2.0) mg/dL Leukocyte Esterase Rfl Negative (Negative) YANN/UL Urine RBC 0-2 (0-2) /hpf Urine WBC 0-5 (0-3) /hpf Ur Squamous Epith Cells Few (Few) /hpf Urine Bacteria 1+ H /hpf Urine Casts 0-2 POC Urine HCG, Qual Negative (Negative) <Marleni Alvarez PA-C - Last Filed: 12/02/24 03:15> Lab Results 12/01/24 12/01/24 12/01/24 Range/Units 17:45 17:55 17:59 WBC 7.9 (4.5-10.0) K/mm3 RBC 4.39 (4.2-5.4) M/mm3 Hgb 12.2 (12.0-15.0) g/dL Hct 38.6 (37.0-47.0) % MCV 87.9 (80-100) fl MCH 27.8 (26-34) pg MCHC 31.6 L (32-36) g/dl RDW 13.3 (11.5-14.5) % Plt Count 279 (150-375) k/mm3 MPV 10.0 (7.4-10.4) fl Immature Gran % (Auto) 0.4 (0-0.5) % Neut % (Auto) 78.2 H (45.5-73.1) % Lymph % (Auto) 12.4 L (18.3-44.2) % [place] % (Auto) 7.8 (2.6-8.5) % Eos % (Auto) 0.8 (0-4.4) % Baso % (Auto) 0.4 (0.2-1.2) % Lymph # (Auto) 0.98 (0.9-3.2) K/mm3 [place] # (Auto) 0.6 (0.1-0.6) K/mm3 Eos # (Auto) 0.1 (0-0.3) K/mm3 Baso # (Auto) 0.0 (0.0-0.1) K/mm3 Abs Immat Gran (auto) 0.03 (0.00-0.031) K/mm3 Absolute Neuts (auto) 6.2 (1.3-6.7) K/mm3 Absolute Nucleated RBC 0.000 (0.0-0.012) K/mm3 Nucleated RBC % 0.0 (0.0-0.2) % Sodium 139 (137-145) mmol/L Potassium 3.9 (3.4-5.0) mmol/L Chloride 105 (98-107) mmol/L Carbon Dioxide 25 (22-30) mmol/L Anion Gap 9 (4-12) mmol/L BUN 9 (7-17) mg/dL Creatinine 0.85 (0.7-1.0) mg/dL Estim Creat Clear Calc 80 ml/min Estimated GFR > 60 (59 - ) Glucose 94 (65-110) mg/dL Calcium 9.2 (8.4-10.2) mg/dL Total Bilirubin 0.3 (0.2-1.3) mg/dL AST 25 (14-36) U/L ALT 19 (6-35) U/L Alkaline Phosphatase 73 (38-126) U/L Total Protein 8.3 H (6.3-8.2) g/dL Albumin 4.5 (3.5-5.1) g/dL Lipase 55 (23-300) U/L Urine Color Yellow (Yellow) Urine Appearance Clear (Clear) Urine pH 6.5 (5.0-9.0) Ur Specific [place] 1.037 H (1.001-1.035) Urine Protein Trace (Negative) mg/dL Urine Glucose (UA) Negative (Negative) mg/dL Urine Ketones Trace H (Negative) mg/dL Ur Blood (Man) Negative (Negative) Urine Nitrate Negative (Negative) Urine Bilirubin Negative (Negative) Urine Urobilinogen 1.0 (<2.0) mg/dL Leukocyte Esterase Rfl Negative (Negative) YANN/UL Urine RBC 0-2 (0-2) /hpf Urine WBC 0-5 (0-3) /hpf Ur Squamous Epith Cells Few (Few) /hpf Urine Bacteria 1+ H /hpf Urine Casts 0-2 POC Urine HCG, Qual Negative (Negative) <Mio Minaya MD - Last Filed: 12/02/24 19:48> Imaging Data Radiologist's impression: ITS Impressions Abdomen/Pelvis CT 12/01/24 20:16 IMPRESSION: Mild esophagitis/gastritis. Mild hepatomegaly. Acute uncomplicated appendicitis. <Marleni Alvarez PA-C - Last Filed: 12/02/24 03:15> ITS Impressions Abdomen/Pelvis CT 12/01/24 20:16 IMPRESSION: Mild esophagitis/gastritis. Mild hepatomegaly. Acute uncomplicated appendicitis. <Mio Minaya MD - Last Filed: 12/02/24 19:48> Critical Care Time Critical Care Time Critical Care Time: No <Marleni Alvarez PA-C - Last Filed: 12/02/24 03:15> Discharge Plan Discharge Clinical Impression: Acute appendicitis Qualifiers: Acute appendicitis type: with localized peritonitis Appendicitis gangrene presence: without gangrene Appendicitis perforation presence: without perforation Appendicitis abscess presence: without abscess Qualified Code(s): K 35.30 - Acute appendicitis with localized peritonitis, without perforation or gangrene <Marleni Alvarez PA-C - Last Filed: 12/02/24 03:15> Patient Disposition: Still a Patient <Marleni Alvarez PA-C - Last Filed: 12/02/24 03:15> Condition: Stable <Marleni Alvarez PA-C - Last Filed: 12/02/24 03:15>
[2024-12-01] MEDS: FAMOTIDINE 20 MG/2 ML VIAL IV PUSH (19:31)
[2024-12-01] MEDS: ONDANSETRON INJ 4 MG/2 ML VIAL IV PUSH (19:31)
[2024-12-01] MEDS: SODIUM CHLORIDE 0.9% IV 1,000 ML 999 ML IV CONT (19:31)
[2024-12-01] MEDS: PIPERACILLIN/TAZOBACTAM SOD 3.375 GM in SODIUM CHLORIDE 0.9% IV 50 ML 100 ML IVPB (21:17)
[2024-12-01] MEDS: SODIUM CHLORIDE 0.9% IV 1,000 ML 125 ML IV CONT (21:18)
--- NOTE | 2024-12-01 22:06 | ADMGEN ---
This patient, Jody Garces, was admitted to Medical Room 254-01. Patient/family oriented to hospital policies and general routines including ID bracelet, bed and alarms, visiting hours, pain management, procedures, bathroom and other care routines, personal items, smoking policy, room service/diet, and visiting hours. Information on how to activate the Rapid Response Team has been discussed. Patient/Family are encouraged to report perceived risks to care and to ask questions if they do not understand what they are told or what they should do.
[2024-12-01] MEDS: MORPHINE SULFATE (*CRX) 4 MG/ML INJ IV PUSH (22:28)
[2024-12-01] MEDS: KETOROLAC 30 MG/ML VIAL (*BKC) IV PUSH (23:45)
[2024-12-02] VITALS (11 sets, daily range): BP systolic 100–115; BP diastolic 55–75; PULSE 84–130; RESP 16–20; TEMP 36.1–37; O2SAT 96–100
[2024-12-02] MEDS: SODIUM CHLORIDE 0.9% IV 1,000 ML 125 ML IV CONT (05:09)
[2024-12-02] MEDS: PIPERACILLIN/TAZOBACTAM SOD 3.375 GM in SODIUM CHLORIDE 0.9% IV 50 ML 100 ML IVPB ×2 (05:10→12:01)
--- NOTE | 2024-12-02 09:29 | P.HP_ITS ---
H&P: [facility] History of Present Illness Date/Time: 12/02/24 09:29 Chief Complaint: RLQ abdominal pain Narrative: This is a 29-year-old woman who presented to the ED last night for evaluation of right lower quadrant abdominal pain. She reports an onset of generalized mild abdominal pain 2 days ago. Around 6:00 a.m. yesterday, her abdominal pain woke her up from sleep and was more severe than the day prior. Her pain began to localize into the right lower quadrant. She reports associated loose stools and nausea, but no vomiting. No fever chills. She could not find any position to get comfortable. Her pain was constant without any alleviating factors and she ultimately came to the ED for evaluation. Labs were unremarkable. CT scan of the abdomen and pelvis showed acute uncomplicated appendicitis, as well as gastritis/esophagitis and mild hepatomegaly. She was admitted and started on IV Zosyn and IV fluids. She is currently NPO. No previous abdominal surgeries. Review of Systems Review of Systems: All systems reviewed & are unremarkable except as noted in HPI and below PMFSH Past Medical History Medical History No active medical problems Surgical History Surgical History No pertinent past surgical history Family History Family History Mother Hypertension Diabetes mellitus Kidney transplant recipient Social History Social History Smoking status: Never smoker Substance use type: does not use Do You Feel Safe in your Home?: Yes Lack of Transportation: No Lack of Food: Never True Current Housing: I Have Housing Concerned About Future Housing: No Difficulty Paying Gas/Electric Bills: No Difficulty Paying for Meds: No Currently Unemployed: No Education: High School Diploma/GED Difficulty w/ Childcare or Family Care: No Spiritual care concerns: No Meds Home Medications and Allergies Home Medications ?Medication ?Instructions ?Recorded ?Confirmed ?Type No Home Medications 12/01/24 12/01/24 History Allergies Allergy/AdvReac Type Severity Reaction Status Date / Time No Known Allergies Allergy Verified 12/01/24 22:05 Vital Signs Vital Signs - 24 hr 12/01/24 16:58 12/01/24 17:55 12/01/24 19:15 Temperature 97.9 F Pulse Rate 105 H 97 89 Respiratory Rate 16 16 20 Blood Pressure 105/59 L 117/84 Pulse Oximetry 100 100 98 Oxygen Delivery Room Air Room Air 12/01/24 19:30 12/01/24 19:45 12/01/24 20:08 Temperature Pulse Rate 88 88 93 Respiratory Rate 14 19 17 Blood Pressure 108/65 Pulse Oximetry 100 99 100 Oxygen Delivery 12/01/24 20:15 12/01/24 20:31 12/01/24 20:45 Temperature Pulse Rate 93 85 93 Respiratory Rate 21 H 19 17 Blood Pressure Pulse Oximetry 100 100 99 Oxygen Delivery 12/01/24 21:15 12/01/24 21:54 12/01/24 22:36 Temperature 97.5 F L Pulse Rate 95 95 Respiratory Rate 15 18 Blood Pressure 101/77 Pulse Oximetry 100 100 Oxygen Delivery Room Air 12/02/24 05:13 Temperature 97.1 F L Pulse Rate 108 H Respiratory Rate 16 Blood Pressure 103/56 L Pulse Oximetry 100 Oxygen Delivery Exam Const: General: comfortable and no acute distress Nutritional Appearance: average body habitus Orientation/consciousness: patient oriented x3 HENMT: Head: normocephalic and atraumatic Ears: hearing grossly normal bilaterally Mouth: Yes moist mucous membranes Eyes: General: appearance normal, both eyes and all related structures Pupils: Equal, round and reactive pupils present Neck: Neck: normal visual inspection and full ROM Resp: Effort & Inspection: no respiratory distress Auscultation: clear to auscultation bilaterally Cardio: Rate: regular rate Rhythm: regular rhythm Peripheral pulses: Peripheral pulses 2+ throughout GI: Inspection: non-distended, no scars and no visible herniation GI Palp: Yes Soft to palpation, Yes Tenderness to palpation present (GI) (significant RLQ tenderness, mild RUQ TTP), No Guarding due to palpation present (GI), Yes No hepatosplenomegaly present and No Rebound tenderness present Auscultation: normal bowel sounds Skin: General skin exam: normal color Neuro: General: moves all extremities and no focal motor deficits Speech: normal speech Motor exam (neuro): 5/5 motor strength present throughout Extrem: General: normal to inspection and no edema Psych: Mental Status: mental status grossly normal Attitude: cooperative Insight: Good insight present (Psych) Judgement: Good judgement present (Psych) H&P: Results Labs Labs: Short CBC 12/01/24 Range/Units 17:45 WBC 7.9 (4.5-10.0) K/mm3 Hgb 12.2 (12.0-15.0) g/dL Hct 38.6 (37.0-47.0) % Plt Count 279 (150-375) k/mm3 BMP 12/01/24 17:45 Sodium 139 Potassium 3.9 Chloride 105 Carbon Dioxide 25 BUN 9 Creatinine 0.85 Glucose 94 Calcium 9.2 Liver Function 12/01/24 Range/Units 17:45 Total Bilirubin 0.3 (0.2-1.3) mg/dL AST 25 (14-36) U/L ALT 19 (6-35) U/L Alkaline Phosphatase 73 (38-126) U/L Albumin 4.5 (3.5-5.1) g/dL Urine 12/01/24 Range/Units 17:59 Urine Color Yellow (Yellow) Urine Appearance Clear (Clear) Urine pH 6.5 (5.0-9.0) Ur Specific [place] 1.037 H (1.001-1.035) Urine Protein Trace (Negative) mg/dL Urine Glucose (UA) Negative (Negative) mg/dL Imaging CT scan - abdomen: Radiologist's impression: ITS Impressions Abdomen/Pelvis CT 12/01/24 20:16 IMPRESSION: Mild esophagitis/gastritis. Mild hepatomegaly. Acute uncomplicated appendicitis. Assessment and Plan Assessment and plan (1) Acute appendicitis: Qualifiers: Acute appendicitis type: with localized peritonitis Appendicitis abscess presence: without abscess Appendicitis gangrene presence: without gangrene Appendicitis perforation presence: without perforation Qualified Code(s): K35.30 - Acute appendicitis with localized peritonitis, without perforation or gangrene Code(s): K35.80 - Unspecified acute appendicitis Status: Acute Assessment and Plan: CT scan reviewed and discussed with the patient. There is evidence of acute appendicitis. No perforation or abscess evident on CT. We discussed both nonoperative treatment with antibiotics versus proceeding with surgery. We discussed the details of a laparoscopic appendectomy, possible open, under general anesthesia that would be done by Dr. Sweet. Description of the procedure, risks, benefits, alternatives, and expected recovery were discussed. She agrees to proceed with surgery. Will keep her NPO and continue IV antibiotics, IV fluids, and analgesics as needed pre-operatively. She has been added to the surgery schedule for today. Plan I have discussed the patient's case and plan of care with Dr. Sweet.
[2024-12-02] MEDS: ACETAMINOPHEN 500 MG TABLET 1000 MG PO (11:58)
--- NOTE | 2024-12-02 13:16 | WPDHPUPDATE1 ---
History and Physical Update Update Date/Time: 12/02/24 13:16 History and Physical has been reviewed, including an updated exam of the patient. There are NO changes in the patient's condition. Risks, benefits, and alternatives have been discussed and questions answered. Patient agrees to proceed with procedure.
--- NOTE | 2024-12-02 13:45 | P.PNAN_ITS ---
Anes - Initial Pre Proc Eval Procedure: Operation Date: 12/02/24 14:00 Proposed Procedures p Laparoscopic Appendectomy - Rashaun Sweet DO Date/Time: 12/02/24 13:45 Surgeon: Rashaun Sweet DO Pre Op Diagnosis: Acute appendicitis Patient Data Age: 29 Gender: F Height: 1.56 m Weight: 81.5 kg Last Vital Signs Temp 98.2 F 12/02/24 12:55 Pulse 91 12/02/24 12:55 Resp 16 12/02/24 12:55 BP 102/55 L 12/02/24 12:55 Pulse Ox 100 12/02/24 12:55 O2 Del Method Room Air 12/02/24 12:55 Allergies Allergy/AdvReac Type Severity Reaction Status Date / Time No Known Allergies Allergy Verified 12/01/24 22:05 Home Medications ?Medication ?Instructions ?Recorded ?Confirmed ?Type No Home Medications 12/01/24 12/01/24 History Laboratory Tests 12/01/24 12/01/24 12/01/24 17:45 17:55 17:59 WBC 7.9 K/mm3 (4.5-10.0) RBC 4.39 M/mm3 (4.2-5.4) Hgb 12.2 g/dL (12.0-15.0) Hct 38.6 % (37.0-47.0) MCV 87.9 fl (80-100) MCH 27.8 pg (26-34) MCHC 31.6 L g/dl (32-36) RDW 13.3 % (11.5-14.5) Plt Count 279 k/mm3 (150-375) MPV 10.0 fl (7.4-10.4) Immature Gran % (Auto) 0.4 % (0-0.5) Neut % (Auto) 78.2 H % (45.5-73.1) Lymph % (Auto) 12.4 L % (18.3-44.2) [place] % (Auto) 7.8 % (2.6-8.5) Eos % (Auto) 0.8 % (0-4.4) Baso % (Auto) 0.4 % (0.2-1.2) Lymph # (Auto) 0.98 K/mm3 (0.9-3.2) [place] # (Auto) 0.6 K/mm3 (0.1-0.6) Eos # (Auto) 0.1 K/mm3 (0-0.3) Baso # (Auto) 0.0 K/mm3 (0.0-0.1) Abs Immat Gran (auto) 0.03 K/mm3 (0.00-0.031) Absolute Neuts (auto) 6.2 K/mm3 (1.3-6.7) Absolute Nucleated RBC 0.000 K/mm3 (0.0-0.012) Nucleated RBC % 0.0 % (0.0-0.2) Sodium 139 mmol/L (137-145) Potassium 3.9 mmol/L (3.4-5.0) Chloride 105 mmol/L (98-107) Carbon Dioxide 25 mmol/L (22-30) Anion Gap 9 mmol/L (4-12) BUN 9 mg/dL (7-17) Creatinine 0.85 mg/dL (0.7-1.0) Estim Creat Clear Calc 80 ml/min Estimated GFR > 60 (59 - ) Glucose 94 mg/dL (65-110) Calcium 9.2 mg/dL (8.4-10.2) Total Bilirubin 0.3 mg/dL (0.2-1.3) AST 25 U/L (14-36) ALT 19 U/L (6-35) Alkaline Phosphatase 73 U/L (38-126) Total Protein 8.3 H g/dL (6.3-8.2) Albumin 4.5 g/dL (3.5-5.1) Lipase 55 U/L (23-300) Urine Color Yellow (Yellow) Urine Appearance Clear (Clear) Urine pH 6.5 (5.0-9.0) Ur Specific [place] 1.037 H (1.001-1.035) Urine Protein Trace mg/dL (Negative) Urine Glucose (UA) Negative mg/dL (Negative) Urine Ketones Trace H mg/dL (Negative) Ur Blood (Man) Negative (Negative) Urine Nitrate Negative (Negative) Urine Bilirubin Negative (Negative) Urine Urobilinogen 1.0 mg/dL (<2.0) Leukocyte Esterase Rfl Negative YANN/UL (Negative) Urine RBC 0-2 /hpf (0-2) Urine WBC 0-5 /hpf (0-3) Ur Squamous Epith Cells Few /hpf (Few) Urine Bacteria 1+ H /hpf Urine Casts 0-2 POC Urine HCG, Qual Negative (Negative) Patient hx anesthesia problems: none Family hx anesthesia problems: none Results Review: All pre-operative results and documents have been reviewed as part of the pre- operative evaluation. [facility] Past Medical History Medical History No active medical problems Surgical History Surgical History No pertinent past surgical history Family History Family History Mother Hypertension Diabetes mellitus Kidney transplant recipient Social History Social History Smoking status: Never smoker Substance use type: does not use Do You Feel Safe in your Home?: Yes Lack of Transportation: No Lack of Food: Never True Current Housing: I Have Housing Concerned About Future Housing: No Difficulty Paying Gas/Electric Bills: No Difficulty Paying for Meds: No Currently Unemployed: No Education: High School Diploma/GED Difficulty w/ Childcare or Family Care: No Spiritual care concerns: No Anes - Eval Final PreProcedure Day of Procedure 12/02/24 13:45 Patient weight: obese Heart: regular rate and rhythm Lungs: clear to auscultation Airway: Mallampati scale class II Neurological: alert and oriented Last oral intake: >/= 8 hours ASA classification: II Emergent: no Anesthetic plan: proceed Anesthesia type and monitoring: general ETT and standard monitoring Results Review: All pre-operative results and documents have been reviewed as part of the pre- operative evaluation. Informed Consent: The patient's anesthetic plan and its attendant risks and benefits were discussed with the patient/family/POA. Questions were solicited and answers provided to the satisfaction of the patient/family/POA.
[2024-12-02] MEDS: KETOROLAC 30 MG/ML VIAL (*BKC) IV PUSH (14:26)
--- NOTE | 2024-12-02 14:33 | S_PTH ---
PATIENT: Jody Garces LOC: [id number] U#:[id number] AGE/SX: 29/F ROOM: 254 RE12/01/[address]: Rashaun Sweet DO : 1995 BED: 01 DIS: 12/03/2024 SPEC #: [id number] RECD: 12/03/24 07:38 STATUS: JOSE MANUEL REQ #: [id number] RAHUL: 12/02/24 14:[address]: Rashaun Sweet DEPT: [facility] Surgical RECD BY: Liza Berger ENTERED: 12/03/24 07:38 SP TYPE: Surgical OTHR DR: PHYSICIAN NOT ON STAFF Tissues: A - Appendix Procedures: Hematoxylin and Eosin Stain Gross and Microscopic Level 3
[2024-12-02] MEDS: BUPIVACAINE/EPINEPHRINE 0.5% 50 ML VIAL 30 ML INFILTRATE (14:38)
[2024-12-02] MEDS: LACTATED RINGERS 1,000 ML 30 ML IV CONT ×2 (15:03→15:04)
--- NOTE | 2024-12-02 15:17 | W.PM.PROC2 ---
Procedure Note - Detailed Date of Procedure 12/02/24 Pre-op Diagnosis Acute appendicitis Post-op Diagnosis Same Procedure Performed Laparoscopic appendectomy Surgeon Rashaun Sweet, DO Anesthesia General and Local (0.5% bupivicaine with epinephrine) Indications This is a 29-year-old woman who presented to the emergency department with lower abdominal pain that started yesterday. She had never experienced anything like this before. She denies any fevers or chills. She denied any change in bowel habits. A CT in the emergency department showed evidence of acute appendicitis. She was admitted for observation and further discussions were made with the patient about treatment options. Decision was made to proceed with laparoscopic appendectomy, possible open. Findings Laparoscopic appendectomy was performed. The distal portion of the appendix appeared dilated and indurated. The more proximal half of the appendix appeared overall normal. The base of the appendix appeared healthy and viable. There was no evidence of perforation or abscess. The pelvis appeared to have some reactive fluid but no other significant abnormalities. The appendix was removed and sent to the lab for pathology. Description of Procedure Procedure as well as risks, benefits, and alternatives were explained to the patient. The patient agreed to proceed. Written consent was obtained and placed in chart prior to procedure. The patient was brought back to surgical suite. She was placed supine on operating table. Time-out was done to confirm the patient and procedure. The patient was then intubated by the Anesthesia Department. Her abdomen was prepped and draped in sterile fashion using chlorhexidine prep. A 5 mm incision was made just to the left of the patient's umbilicus and a 5 mm Optiview trocar was advanced through the abdominal layers under direct visualization. Once inside the peritoneal cavity, carbon dioxide insufflation was used to create a pneumoperitoneum. The camera was inserted and the abdomen was inspected. No immediate abnormalities were identified. The patient was then placed in slight Trendelenburg position and rotated to the left. A 5 mm incision was made in the suprapubic region in midline and a 5 mm trocar was inserted under direct visualization. A 12 mm incision was made in the left lower quadrant and a 12 mm trocar was inserted under direct visualization. The right lower quadrant was carefully inspected. The cecum was identified and then this was traced back to the appendix. The appendix was identified and grasped at the mesoappendix and lifted anteriorly. Careful blunt dissection was carried out at the base of the appendix through the mesoappendix using a [place] grasper. An Endo-LUKAS 45 mm blue load stapler was then advanced across the base of the appendix and clamped and fired. A white reload was then clamped across the mesoappendix and fired. This freed up our appendix completely. It was then placed in an EndoCatch bag and removed through the left lower quadrant port. The staple lines were then inspected. Hemostasis appeared adequate and the staple lines appeared secure. The area was then irrigated with sterile saline. The pelvis was then carefully inspected and irrigated with sterile saline as well and the remainder of the abdomen was carefully inspected. The patient was then flattened out in bed. One final inspection was made around the abdominal cavity and no other abnormalities were seen. The left lower quadrant port was removed and a Maxwell-Jan cone was used to approximate the fascia with an 0 Vicryl simple interrupted suture. The remaining ports were then removed under direct visualization. The camera was removed and the pneumoperitoneum was released. 0.5% bupivacaine with epinephrine was infiltrated locally around each of the incisions. The skin of the incisions was then approximated using 4-0 Monocryl subcuticular suture and Exofin glue was applied on top. The patient was then awakened from anesthesia, extubated, and transferred to Recovery. Estimated Blood Loss 5 Urine Output 300 Pathology Yes (Appendix) Complications No immediate complications Condition Stable Disposition Floor [facility] Billing Surgery - Charge Forward: Surgery Billing
[2024-12-02] MEDS: fentaNYL CITRATE INJ (*CRX) 100 MCG/2 ML VIAL 25 MCG IV PUSH ×4 (15:40→16:00)
[2024-12-02] MEDS: LACTATED RINGERS 1,000 ML 100 ML IV CONT (16:41)
[2024-12-02] MEDS: MORPHINE SULFATE (*CRX) 2 MG/ML INJ IV PUSH (16:53)
[2024-12-02] MEDS: ONDANSETRON INJ 4 MG/2 ML VIAL IV PUSH (16:58)
[2024-12-02] MEDS: IBUPROFEN IV 800 MG/200 ML 800 MG/200 ML BAG 400 MG IVPB (18:14)
[2024-12-02] MEDS: HYDROcodone/acetaminophen (*CRX) 7.5-325 MG TABLET 1 TAB PO (21:26)
[2024-12-03 01:07] VITALS: BP 107/69; PULSE 96; RESP 20; TEMP 36.5; O2SAT 100
[2024-12-03] MEDS: HYDROcodone/acetaminophen (*CRX) 7.5-325 MG TABLET 1 TAB PO (05:47)
[2024-12-03 06:00] VITALS: BP 105/71; PULSE 78; RESP 20; TEMP 36.6; O2SAT 100
[2024-12-03 10:27] VITALS: BP 110/76; PULSE 93; RESP 18; TEMP 36.4; O2SAT 100
--- NOTE | 2024-12-03 13:17 | P.DS_ITS ---
DS: Admitting Diagnosis Discharge Date 12/03/2024 Admitting Diagnosis Acute uncomplicated appendicitis DS: Discharge Diagnosis Discharge Diagnosis (1) Acute appendicitis: Qualifiers: Acute appendicitis type: with localized peritonitis Appendicitis abscess presence: without abscess Appendicitis gangrene presence: without gangrene Appendicitis perforation presence: without perforation Qualified Code(s): K35.30 - Acute appendicitis with localized peritonitis, without perforation or gangrene Code(s): K35.80 - Unspecified acute appendicitis Status: Acute DS: Summary Hospital Course Reason for hospitalization: Acute appendicitis Hospital Course: This is a 29-year-old woman who presented to the emergency department 12/01/2024 with lower abdominal pain. CT showed evidence of acute appendicitis. She was placed in observation and started on IV antibiotics. She then underwent laparoscopic appendectomy on 12/02/2024. Surgery was uncomplicated and she was returned to the surgical floor postoperatively. Her diet and activity were advanced as tolerated. Patient stayed until 12/03 to adequately control pain and be able to tolerate ambulating without assistance. She was discharged home once her pain was adequately controlled, vitals remained stable, she was tolerating her diet, and ambulating in the halls. Status at Discharge Functional status at discharge: independent ambulation Overall status at discharge: patient is progressing back to baseline Time Spent with Patient Time attestation: Total time spent providing and/or coordinating discharge services: Time spent: Less than 30 minutes Exam Const: General: comfortable and no acute distress Resp: Effort & Inspection: normal respiratory effort Auscultation: clear to auscultation bilaterally GI: Inspection: non-distended and incision (intact with glue) GI Palp: Yes Tenderness to palpation present (GI) (at LLQ incision), No Guarding due to palpation present (GI) and No Rebound tenderness present Auscultation: normal bowel sounds DS: Data Data Completed and Pending Pending studies at discharge: Pending at discharge 12/02/24 14:33 Surgical [PTH] Routine Labs on day of discharge: Labs from last 24 hours 12/01/24 12/01/24 12/01/24 17:59 17:55 17:45 WBC 7.9 RBC 4.39 Hgb 12.2 Hct 38.6 MCV 87.9 MCH 27.8 MCHC 31.6 L RDW 13.3 Plt Count 279 MPV 10.0 Immature Gran % (Auto) 0.4 Neut % (Auto) 78.2 H Lymph % (Auto) 12.[address] [place] % (Auto) 7.8 Eos % (Auto) 0.8 Baso % (Auto) 0.4 Lymph # (Auto) 0.98 [place] # (Auto) 0.6 Eos # (Auto) 0.1 Baso # (Auto) 0.0 Abs Immat Gran (auto) 0.03 Absolute Neuts (auto) 6.2 Absolute Nucleated RBC 0.000 Nucleated RBC % 0.0 Sodium 139 Potassium 3.9 Chloride 105 Carbon Dioxide 25 Anion Gap 9 BUN 9 Creatinine 0.85 Estim Creat Clear Calc 80 Estimated GFR > 60 Glucose 94 Calcium 9.2 Total Bilirubin 0.3 AST 25 ALT 19 Alkaline Phosphatase 73 Total Protein 8.3 H Albumin 4.5 Lipase 55 Urine Color Yellow Urine Appearance Clear Urine pH 6.5 Ur Specific [place] 1.037 H Urine Protein Trace Urine Glucose (UA) Negative Urine Ketones Trace H Ur Blood (Man) Negative Urine Nitrate Negative Urine Bilirubin Negative Urine Urobilinogen 1.0 Leukocyte Esterase Rfl Negative Urine RBC 0-2 Urine WBC 0-5 Ur Squamous Epith Cells Few Urine Bacteria 1+ H Urine Casts 0-2 POC Urine HCG, Qual Negative Imaging Radiologist's impression: ITS Impressions Abdomen/Pelvis CT 12/01/24 20:16 IMPRESSION: Mild esophagitis/gastritis. Mild hepatomegaly. Acute uncomplicated appendicitis. Discharge Plan Discharge Attending physician on discharge: Rashaun Longoria Discharging Clinician: Rashaun Longoria Anticipated Discharge Date/Time: 12/02/24 18:00 Patient Disposition: Home Activity: other - see discharge instructions Diet: regular Wound Care Instructions: other - see discharge instructions Discharge Instructions: DISCHARGE INSTRUCTION SHEET FOR HERNIA, GALLBLADDER AND APPENDIX SURGERIES DR. LONGORIA PATIENT TO TAKE HOME 1. May shower in 24 hours, no soaking in bath x 2weeks. 2. Call office for: * Wound increasingly painful or bleeding * Vomiting * Fever of greater than 101 degrees 3. If no bowel movement for three days, take 1 oz. (30 ml) Milk of Magnesia or MiraLax 17g 1 to 2 times daily. 4. No heavy lifting > 10-15 pounds x weeks for hernia repairs and 2 weeks for laparoscopic cholecystectomy or appendectomy. 5. No driving for 3 days or while taking narcotic pain medications. 6. Ice to surgical site for 48 hours (30 min on, then 30 min off). 7. Up walking 10-30 minutes three times per day. 8. Resume previous home medications. 9. Follow-up 10-14 days in office for wound check or as previously scheduled. ([phone]) 10. Oral pain medications prescription to be sent to pharmacy. Take Tylenol 500mg every 6 hours and Ibuprofen 600mg every 6 hours for the first 2 days, then as needed. 11. NUTRITION: Start out by drinking fluids and increase your diet as tolerated. If you experience nausea, try dry toast, crackers, and 7-UP. If nausea or vomiting persists, contact your surgeon?s office. 12. Gallbladders-Low Fat Diet for 2 weeks (send care note of low fat diet) 13. Inguinal Hernias-wear scrotal support for 48 hours 14. Abdominal Hernias-if sent home with abdominal binder, wear for the first 2 weeks (may remove to shower or at night to sleep). Revised September 2018 Patient Instructions: Antibiotic Form, Opioid Safety (DC) Patient Language: Georgian Stand Alone Forms: General Discharge Information Follow-up/Referrals: Rashaun Longoria, [Physician] - 2 Weeks Discharge Medications: New hydrocodone-acetaminophen 5-325 mg tablet 1 - 2 tablet PO Q4H PRN (Reason: pain) Qty: 15 0RF Date of admission: 12/01/24 20:38 Primary Care Provider: PHYSICIAN NOT ON STAFF,NONSTAFF Admitting Provider: Rashaun Longoria Attending physician on admission: Rashaun Longoria Condition: Stable
== END 2024-12-03 12:50 | disposition home or self-care (01) ==
LOC: ANHED 18:29 → ANH2MED 21:20
PROVIDERS: Admitting Provider Surgery; Emergency Provider Physician Assistant; Visit Provider Surgery
PROC: 0DTJ4ZZ Resection of Appendix, Percutaneous Endoscopic Approach (ICD-10-PCS; CPT 44970; principal; 2024-12-02 14:00)
DX: K35.80 Unspecified acute appendicitis (principal); E66.9 Obesity, unspecified; Z68.33 Body mass index [BMI] 33.0-33.9, adult
CPT/HCPCS: 44970; 36415; 74177; 80053; 81001; 81025; 83690; 85025; 88304; 96365; 96375; 96376; 99285; A9270; G0378; J1100; J1741; J1885; J2003; J2250; J2270; J2405; J2543; J2704; J3010; J7030; J7120; Q9967